=== PATIENT | female | born 1965 | race Caucasian/White ===

== ENCOUNTER 2018-03-14 13:47 | Outpatient (CLI) | payer BC ==
--- NOTE | 2018-03-14 15:29 | RAD ---
FIVE VIEWS CERVICAL SPINE: History: Cervical radiculopathy. Comparison: None. FINDINGS: In the AP projection, there is mild degenerative changes of the facets. Predental space is normal. Cassie mcdaniels evaluation of the odontoid process in the open mouth projection. Lateral masses of C1 and C2 ar ticular appropriately. Vertebral body height is maintained. No fracture. No malalignment on the neutral position or upon ext ension/flexion. Disc space heights are preserved. IMPRESSION: No significant abnormal motion upon flexion or extension. No significant spondylolisthesis in the shaheed tral position. POS: [facility]
--- NOTE | 2018-03-14 16:04 | MRI ---
CERVICAL SPINE MRI WITHOUT CONTRAST: Date: 03/14/18 COMPARISON: 09/24/12. TECHNIQUE: Cervical spine MRI is performed without intravenous Gadolinium administration. Multisequential, multi planar imaging performed. FINDINGS: Appropriate T1 marrow signal intensity of cervical vertebra. Vertebral body height is maintained. The re is no fracture. No significant STIR hyperintensities to suggest edema or ligamentous injury. Visualized brain parenchyma, cervicomedullary junction, cervical cord, and the upper thoracic cord vogel ve a normal size and signal intensity. Straightening of the normal cervical lordosis is felt to be du e to patient position. C2-C3 No significant disc osteophyte complex. No significant central canal stenosis or foraminal narrowing. C3-C4: No significant disc osteophyte complex. No significant central canal stenosis. Neural foramina are pa tent. C4-C5: No significant disc osteophyte complex. No significant central canal stenosis. Mild right foraminal n arrowing. Left foramen is patent. C5-C6: No significant disc osteophyte complex. No significant central canal stenosis. Neural foramina are pa tent. C6-C7: No significant disc osteophyte complex. No significant central canal stenosis or foraminal narrowing. C7-T1: No significant disc osteophyte complex. No significant central canal stenosis or foraminal narrowing. IMPRESSION: No significant central canal stenosis or foraminal narrowing. POS: [facility]
== END 2018-03-14 13:48 | disposition home or self-care (01) ==
LOC: TBSIIMAG 13:47
PROVIDERS: ATTEND Surgery
DX: M54.12 Radiculopathy, cervical region (principal)
CPT/HCPCS: 72050; 72141

== ENCOUNTER 2024-11-20 14:51 | Outpatient (CLI) | payer OTHER | END 2024-11-20 14:52 | disposition home or self-care (01) | LOC: BICMRI 14:51 | DX: M50.122 Cervical disc disorder at C5-C6 level with radiculopathy (principal); M50.123 Cervical disc disorder at C6-C7 level with radiculopathy | CPT/HCPCS: 72141 ==